=== PATIENT | female | born 2000 | race Caucasian/White ===

== ENCOUNTER 2024-09-07 13:02 | Outpatient (OUT) | payer OTHER, SELFPAY ==
--- NOTE | 2024-09-07 12:55 | XR_ITS ---
[facility] [place] [id number] Patient Name: ALEXANDER ALDANA MRN: [id number] date: 2000 Sex: F Assigned Patient Location: [facility] Current Patient Location: [facility] Accession/Order Number: [id number] Exam Date: 09/07/2024 14:25 Report Date: 09/07/2024 14:26 At the request of: SHAVON NIXON DPHanna Procedure: XR foot LT min 3V LEFT FOOT - 3 views CLINICAL HISTORY: Postop pain COMPARISON: Left foot 04-09 FINDINGS: Soft tissue swelling is present. Hardware fixation is seen involving the calcaneus without hardware complication. Presumed post traumatic changes are seen in the region of the talonavicular joint. Scattered degenerative changes primarily involving the midfoot. No bony erosions. XR/XR foot LT min 3V IMPRESSION: NO HARDWARE COMPLICATION. PRESUMED POSTTRAUMATIC CHANGES WITH ASSOCIATED DEGENERATIVE CHANGE INVOLVING THE MIDFOOT. NO DEFINITIVE ACUTE FRACTURE IS SEEN. IF FURTHER EVALUATION IS NEEDED, CT IS SUGGESTED. SOFT TISSUE SWELLING. Impression dictated by: Gallo Jack Jr., D.O. 09/07/2024 2:26 PM Dictation Location: [place] [address] Electronically authenticated by: [id number] Y Date: 09/07/2024 14:26
== END 2024-09-07 13:03 | disposition home or self-care (01) ==
LOC: RAD 13:05
PROVIDERS: PCP Internal Medicine; Visit Provider Podiatrist Foot & Ankle Surgery
DX: M79.672 Pain in left foot (principal); Z98.890 Other specified postprocedural states
CPT/HCPCS: 73630

== ENCOUNTER 2024-10-08 13:18 | Outpatient (OUT) | payer OTHER, SELFPAY ==
--- NOTE | 2024-10-08 13:20 | XR_ITS ---
[facility] [place] [id number] Patient Name: ALEXANDER ALDANA MRN: [id number] date: 2000 Sex: F Assigned Patient Location: [facility] Current Patient Location: [facility] Accession/Order Number: [id number] Exam Date: 10/08/2024 14:27 Report Date: 10/08/2024 14:36 At the request of: SHAVON NIXON DPHanna Procedure: XR foot LT min 3V LEFT FOOT - 3 views CLINICAL HISTORY: 2nd Metatarsal Stress Fracture COMPARISON: Left foot 09/07/2024 FINDINGS: Interval development of periosteal reaction/callus formation involving the second metatarsal consistent with healing fracture. No displacement is seen. No additional fractures are noted. Calcaneal hardware is unchanged without fracture. Degenerative changes are noted particularly involving the midfoot without bony erosions. XR/XR foot LT min 3V IMPRESSION: HEALING SECOND METATARSAL FRACTURE. Impression dictated by: Gallo Jack Jr., D.O. 10/08/2024 2:36 PM Dictation Location: [place] [address] Electronically authenticated by: [id number] Y Date: 10/08/2024 14:36
== END 2024-10-08 13:19 | disposition home or self-care (01) ==
LOC: RAD 13:18
PROVIDERS: PCP Internal Medicine; Visit Provider Podiatrist Foot & Ankle Surgery
DX: S92.325D Nondisplaced fracture of second metatarsal bone, left foot, subsequent encounter for fracture with routine healing (principal)
CPT/HCPCS: 73630